=== PATIENT | female | born 1985 | race Caucasian/White ===

== ENCOUNTER 2016-08-20 20:47 | Inpatient (IN) | payer BC ==
[~2016-08-20] VITALS: Ht 157.5 cm; Wt 85.7 kg
[~2016-08-20 20:47] MED LIST: ESOM20CA PO; PREN-55 PO
--- NOTE | 2016-08-20 21:15 | NUR ---
PT PRESENTED TO THE ER WITH A C/O LOWER ABD REDNESS, PAIN, EDEMA S/P SPIDER BITE 2 DAYS AGO.
[2016-08-20] MEDS ORDERED: PIPERACILLIN /TAZOBACTAM 3.375 G VIAL IV ONE (21:25)
[2016-08-20] MEDS ORDERED: IV NS 0.9% 500 ML IV ONE (21:25)
[2016-08-20] MEDS ORDERED: IV SET PRIMARY 1 EA INFUS.SET MC ONE (21:25)
[2016-08-20] MEDS ORDERED: IV D5W 0 ML IV ONE (21:25)
[2016-08-20] MEDS ORDERED: IV SET PRIMARY PUMP SET 1 EA INFUS.SET MC ONE (21:25)
[2016-08-20] MEDS ORDERED: VANCOMYCIN 1 GM VIAL ONE (21:26)
[2016-08-20 21:30] LABS: BASOPHILS # (AUTO) 0.1 /CMM (0.0-0.2); BASOPHILS % (AUTO) 0.7 % (0.0-2.0); EOSINOPHILS # (AUTO) 0.2 /CMM (0.0-0.7); EOSINOPHILS % (AUTO) 1.4 % (0.0-6.0); HEMATOCRIT 36 % (33-45); HEMOGLOBIN 11.4 g/dL (11.5-14.8); LYMPHOCYTES # (AUTO) 1.8 /CMM (0.8-4.8); LYMPHOCYTES % (AUTO) 16.3 % (20.0-44.0); MEAN CORPUSCULAR HEMOGLOBIN 23 PG (26.0-33.0); MEAN CORPUSCULAR HGB CONC 32 g/dl (31.0-36.0); MEAN CORPUSCULAR VOLUME 72 fL (82-100); MONOCYTES # (AUTO) 0.4 /CMM (0.1-1.30); MONOCYTES % (AUTO) 3.8 % (2.0-12.0); NEUTROPHILS # (AUTO) 8.8 /CMM (1.8-8.9); NEUTROPHILS % (AUTO) 77.8 % (43.0-81.0); PLATELET COUNT (AUTO) 376 /CMM (150-450); RDW COEFFICIENT OF VARIATION 15.5 (11.5-15.0); RED BLOOD CELL COUNT(AUTO) 5.04 MIL/uL (4.0-5.2); WHITE BLOOD COUNT (AUTO) 11.3 K/uL (4.3-11.0)
[2016-08-20] MEDS ORDERED: IV NS 0.9% 500 ML BAG IV ONE (21:30)
[2016-08-20] MEDS ORDERED: PIPERACILLIN /TAZOBACTAM 3.375 G in IV D5W 50 ML IV ONE (21:30)
[2016-08-20] MEDS ORDERED: VANCOMYCIN 1 GM in IV D5W 250 ML IV ONE (21:30)
--- NOTE | 2016-08-20 21:37 | NUR ---
JC PAGED, DR.SAM Can EGG CASER
--- NOTE | 2016-08-20 21:37 | NUR ---
CALLED NURSING SUP. FOR MS BED
[2016-08-20 21:40] LABS: CALCIUM, SERUM 8.9 mg/dL (8.5-10.1); CREATININE 0.9 mg/dL (0.6-1.3); POTASSIUM 3.8 mmol/L (3.5-5.1)
[2016-08-20 21:50] LABS: LACTIC ACID 0.8 mmol/L (0.4-2.0)
[2016-08-20 22:01] LABS: INR 0.94 (0.87-1.13)
[2016-08-20 22:13] LABS: BAND % (MANUAL) 1 % (0.0-5.0); BASOPHILS % (MANUAL) 0 % (0.0-2.0); EOSINOPHILS % (MANUAL) 3 % (0-4); LYMPHOCYTES % (MANUAL) 19 % (16-48); MONOCYTES % (MANUAL) 6 % (0-11.0); NEUTROPHILS % (MANUAL) 71 (42-76); PLATELET ESTIMATE ADEQUATE
[2016-08-20 22:14] LABS: ANISOCYTOSIS 1+
[2016-08-20] MEDS ORDERED: IV NS 0.9% 1,000 ML IV PRN (22:19)
--- NOTE | 2016-08-20 22:19 | NUR ---
PT AMBULATED TO THE BATHROOM WITH A STEADY GAIT.
--- NOTE | 2016-08-20 22:22 | NUR ---
REPORT GIVEN TO KEN SALMON
[2016-08-20] MEDS ORDERED: ACETAMINOPHEN 325 MG TABLET PO PRN (22:30)
[2016-08-20] MEDS ORDERED: HYDROCODONE/APAP 5/325MG 1 EACH TABLET PO PRN (22:30)
[2016-08-20] MEDS ORDERED: MAG HYDROX/AL HYDROX/SIMETH 30 ML UDC PO PRN (22:30)
[2016-08-20] MEDS ORDERED: ZOLPIDEM TARTRATE 5 MG TABLET PO PRN (22:30)
[2016-08-20] MEDS ORDERED: ONDANSETRON HCL/PF 4 MG/2 ML VIAL IVP PRN (22:30)
[2016-08-20] MEDS ORDERED: VANCOMYCIN 1.5 GM in IV D5W 500 ML IV SCH (22:30)
[2016-08-20] MEDS ORDERED: MAGNESIUM HYDROXIDE 30 ML UDC PO PRN (22:30)
[2016-08-20] MEDS ORDERED: Z GUARD REMEDY 2 OZ OINT TP PRN (22:30)
[2016-08-20 23:00] VITALS: BP 97/51
--- NOTE | 2016-08-20 23:00 | NUR ---
MS RN NOTE: RECEIVED PATIENT FROM ER, NO ACUTE DISTRESS NOTED. BREATHING EVEN AND UNLABORED, NO SOB NOTED. IV TO LAC IN PLACE, INFUSING VANCOMYCIN STARTED IN ER. ORIENTED PATIENT TO ROOM AND USE OF CALL LIGHT. BED LOCKED AND IN LOWEST POSITION. WILL CONTINUE TO MONITOR.
[2016-08-21] MEDS ORDERED: METO-295 PO (02:34)
--- NOTE | 2016-08-21 06:30 | NUR ---
MS RN NOTE: PATIENT RESTING IN BED, NO ACUTE DISTRESS NOTED. BREATHING EVEN AND UNLABORED, NO SOB NOTED. IV TO LAC IN PLACE. BED LOCKED AND IN LOWEST POSITION. WILL ENDORSE TO DAY NURSE TO CONTINUE WITH PLAN OF CARE.
[2016-08-21] MEDS ORDERED: PANTOPRAZOLE 40 MG TABLET.DR PO ONE (06:44)
[2016-08-21 06:46] LABS: BASOPHILS # (AUTO) 0.1 /CMM (0.0-0.2); BASOPHILS % (AUTO) 0.8 % (0.0-2.0); EOSINOPHILS # (AUTO) 0.1 /CMM (0.0-0.7); EOSINOPHILS % (AUTO) 0.8 % (0.0-6.0); HEMATOCRIT 34 % (33-45); LYMPHOCYTES # (AUTO) 1.7 /CMM (0.8-4.8); LYMPHOCYTES % (AUTO) 17.7 % (20.0-44.0); MEAN CORPUSCULAR HEMOGLOBIN 23 PG (26.0-33.0); MEAN CORPUSCULAR HGB CONC 32 g/dl (31.0-36.0); MEAN CORPUSCULAR VOLUME 72 fL (82-100); MONOCYTES # (AUTO) 0.6 /CMM (0.1-1.30); MONOCYTES % (AUTO) 6.5 % (2.0-12.0); NEUTROPHILS # (AUTO) 6.9 /CMM (1.8-8.9); NEUTROPHILS % (AUTO) 74.2 % (43.0-81.0); PLATELET COUNT (AUTO) 323 /CMM (150-450); RDW COEFFICIENT OF VARIATION 15.4 (11.5-15.0); RED BLOOD CELL COUNT(AUTO) 4.75 MIL/uL (4.0-5.2); WHITE BLOOD COUNT (AUTO) 9.4 K/uL (4.3-11.0)
[2016-08-21] MEDS ORDERED: IV NS 0.9% 1,000 ML ONE (06:46)
[2016-08-21 06:54] LABS: CALCIUM, SERUM 8.6 mg/dL (8.5-10.1); CREATININE 0.7 mg/dL (0.6-1.3); MAGNESIUM 2.1 mg/dL (1.8-2.4); POTASSIUM 3.7 mmol/L (3.5-5.1)
[2016-08-21 07:15] LABS: PHOSPHORUS 4.2 mg/dL (2.5-4.9)
[2016-08-21 07:17] LABS: THYROID STIMULATING HORMONE 1.248 uIU/mL (0.358-3.74)
[2016-08-21] MEDS ORDERED: PANTOPRAZOLE 40 MG TABLET.DR PO SCH (07:30)
[2016-08-21 08:00] VITALS: BP 109/61
--- NOTE | 2016-08-21 08:00 | NUR ---
MS RN NOTE: RECEIVED PATIENT FROM ER, NO ACUTE DISTRESS NOTED. BREATHING EVEN AND UNLABORED, NO SOB NOTED. IV TO LAC IN PLACE, INFUSING WITH IVF 0.9 NS AT 75 ML/HR . CALL LIGHT WITHIN REACH. BED LOCKED AND IN LOWEST POSITION. WILL CONTINUE TO MONITOR.
[2016-08-21 08:41] LABS: EOSINOPHILS % (MANUAL) 1 % (0-4); LYMPHOCYTES % (MANUAL) 18 % (16-48); MONOCYTES % (MANUAL) 7 % (0-11.0); NEUTROPHILS % (MANUAL) 74 (42-76)
[2016-08-21 08:42] LABS: PLATELET ESTIMATE ADEQUATE
[2016-08-21] MEDS ORDERED: VANCOMYCIN 1.5 GM in IV D5W 500 ML IV SCH (09:00)
[2016-08-21] MEDS ORDERED: SECONDARY IV SET 1 EA INFUS.SET MC ONE (09:58)
--- NOTE | 2016-08-21 11:00 | NUR ---
WOUND CARE CONSULT: PT PRESENTS WITH ABDOMINAL WOUND WHICH IS DRAINING PURULENT DRAINAGE. RECOMMEND SURGICAL CONSULT. RECOMMENDATIONS MADE FOR WOUND CARE AND DISCUSSED WITH NURSING STAFF. WILL SEE PRN. SHIPLEY IN AGREEMENT WITH PLAN OF CARE. Addendum: 08/21/16 at 1101 by RUFINA GONZALES WNDNU Amended: Links added.
[2016-08-21] MEDS ORDERED: MUPI22OI2 TP (11:48)
--- NOTE | 2016-08-21 12:30 | NUR ---
DISCHARGED PT HOME WITH STABLE V/S.DISCHARGE INSTRUCTIONS AND RX GIVEN TO PT.
== END 2016-08-21 12:30 | disposition home or self-care (01) | DRG 383 ==
LOC: ER 20:47 → MEDSG2 22:05
DX: L03.311 Cellulitis of abdominal wall (principal); E66.9 Obesity, unspecified; K21.9 Gastro-esophageal reflux disease without esophagitis; D50.9 Iron deficiency anemia, unspecified; T63.301A Toxic effect of unspecified spider venom, accidental (unintentional), initial encounter; Z68.34 Body mass index [BMI] 34.0-34.9, adult; L02.211 Cutaneous abscess of abdominal wall; R73.03 Prediabetes
CPT/HCPCS: 36415; 80048-TC; 80061-TC; 83605-TC; 83735-TC; 84100-TC; 84443-TC; 85025-TC; 85730-TC; 87040-TC; 87070-TC; 87081-TC; A4606; J2543; J3370; J7030; J7040; J7060; Z7610

== ENCOUNTER 2016-10-16 18:04 | Emergency (ER) | payer BC ==
[~2016-10-16] VITALS: Ht 157.5 cm; Wt 83.5 kg
[~2016-10-16 18:04] MED LIST changes: +METO-295 PO; +MUPI22OI2 TP
--- NOTE | 2016-10-16 18:04 | NUR ---
C/O SPIDER BITE TO RLQ ABD X YESTERDAY. GOWNED PT. AWAITING MD ORDER.
[2016-10-16] MEDS ORDERED: CEPHALEXIN MONOHYDRATE 500 MG CAPSULE PO STA (18:42)
[2016-10-16] MEDS ORDERED: SULFAMETH/TRIMETH 800/160 MG 1 UDTAB TABLET PO STA (18:42)
[2016-10-16] MEDS ORDERED: CEPHALEXIN MONOHYDRATE 500 MG CAPSULE PO ONE (18:43)
[2016-10-16] MEDS ORDERED: SULFAMETH/TRIMETH 800/160 MG 1 UDTAB TABLET PO ONE (18:43)
--- NOTE | 2016-10-16 18:53 | NUR ---
Patient discharged to home in stable condition. Written and verbal after care instructions given. Patient verbalizes understanding of instruction.
[2016-10-16 18:54] VITALS: BP 110/74
== END 2016-10-16 18:54 | disposition home or self-care (01) ==
LOC: ER 18:05
DX: S30.861A Insect bite (nonvenomous) of abdominal wall, initial encounter (principal); L03.311 Cellulitis of abdominal wall; K21.9 Gastro-esophageal reflux disease without esophagitis; W57.XXXA Bitten or stung by nonvenomous insect and other nonvenomous arthropods, initial encounter; Y92.89 Other specified places as the place of occurrence of the external cause; Y93.89 Activity, other specified; Y99.8 Other external cause status
CPT/HCPCS: 99283; A4606; Z7610

== ENCOUNTER 2016-12-26 11:09 | Emergency (ER) | payer BC ==
[~2016-12-26] VITALS: Ht 157.5 cm; Wt 80.3 kg
[2016-12-26 11:09] VITALS: BP 113/82
== END 2016-12-26 11:42 | disposition home or self-care (01) ==
LOC: ER 11:11
DX: S30.861A Insect bite (nonvenomous) of abdominal wall, initial encounter (principal); L03.311 Cellulitis of abdominal wall; E11.9 Type 2 diabetes mellitus without complications; K21.9 Gastro-esophageal reflux disease without esophagitis; Z98.84 Bariatric surgery status; W57.XXXA Bitten or stung by nonvenomous insect and other nonvenomous arthropods, initial encounter; Y93.89 Activity, other specified; Y92.89 Other specified places as the place of occurrence of the external cause; Y99.9 Unspecified external cause status
CPT/HCPCS: 99283; A4606; Z7610

== ENCOUNTER 2017-02-15 12:31 | Emergency (ER) | payer BC ==
[~2017-02-15] VITALS: Ht 157.5 cm; Wt 79.4 kg
[2017-02-15 13:02] VITALS: BP 129/77
== END 2017-02-15 14:25 | disposition home or self-care (01) ==
LOC: ER 12:33
DX: S20.212A Contusion of left front wall of thorax, initial encounter (principal); S20.211A Contusion of right front wall of thorax, initial encounter; S10.91XA Abrasion of unspecified part of neck, initial encounter; E11.9 Type 2 diabetes mellitus without complications; K21.9 Gastro-esophageal reflux disease without esophagitis; Z98.84 Bariatric surgery status; V49.49XA Driver injured in collision with other motor vehicles in traffic accident, initial encounter; Y93.89 Activity, other specified; Y92.410 Unspecified street and highway as the place of occurrence of the external cause; Y99.8 Other external cause status
CPT/HCPCS: 71010; 99283; A4606; Z7610